=== PATIENT | female | born 1950 | race African-American/Black ===

== ENCOUNTER → 2016-08-01 | Outpatient (CLI) | payer OTHER ==
--- NOTE | 2016-08-01 12:14 | RAD ---
DATE: 08/01/2016 EXAM: DIGITAL SCREEN BILAT W/CAD HISTORY: Routine screening COMPARISON: 07/27/2015 and 07/21/2014. This study was interpreted with the benefit of Computerized Aided Detection (CAD). FINDINGS: The overall parenchymal pattern is stable. There are benign calcifications throughout both breasts. There appears to be some increase in microcalcifications in the medial aspect of the right breast at posterior depth. Magnification views are recommended. Left breast appears to be fairly stable. No spiculated mass is identified. The axillae are unremarkable. Breast Density: HETERO The breast parenchyma is heterogeneously dense, which could reduce sensitivity of mammography. Breast parenchyma level C. IMPRESSION: Increase in number of right breast calcifications. Magnification and mediolateral views are recommended. BI-RADS CATEGORY: 0 INCOMPLETE: NEEDS ADDITIONAL IMAGING EVALUATION AND/OR PRIOR MAMMOGRAMS FOR COMPARISON. RECOMMENDED FOLLOW-UP: ADD ADDITIONAL IMAGING PQRS compliance statement: Patient information was entered into a reminder system with a target due date for the next mammogram. Mammography is a sensitive method for finding small breast cancers, but it does not detect them all and is not a substitute for careful clinical examination. A negative mammogram does not negate a clinically suspicious finding and should not result in delay in biopsying a clinically suspicious abnormality. "Our facility is accredited by the [employer] Mammography Program."
== END | disposition home or self-care (01) ==
LOC: MAMMO 08:39
PROVIDERS: ATTEND Internal Medicine
DX: Z12.31 Encounter for screening mammogram for malignant neoplasm of breast (principal)
CPT/HCPCS: G0202; 77067

== ENCOUNTER → 2016-08-07 | Outpatient (CLI) | payer OTHER ==
--- NOTE | 2016-08-07 11:02 | RAD ---
DATE: 08/07/2016 EXAM: DIGITAL DIAGNOSTIC RT HISTORY: Suspicious screening study COMPARISON: 08/01/2016, 07/27/2015 This study was interpreted with the benefit of Computerized Aided Detection (CAD). FINDINGS: Additional views of the right breast confirm the presence of a cluster of microcalcifications in the posterior aspect of the right breast at the 2:00 location. The magnification views demonstrate microcalcifications of varying sizes and shapes. These have progressed since the previous studies. The overall grouping demonstrates a somewhat elongated configuration. These calcifications are spread over an area measuring approximately 1 x 2 cm. DCIS is a possibility and stereotactic biopsy is suggested. IMPRESSION: Suspicious right breast microcalcifications as described above. Stereotactic biopsy is suggested for further evaluate location. BI-RADS CATEGORY: 4 SUSPICIOUS ABNORMALITY- BIOPSY SHOULD BE CONSIDERED RECOMMENDED FOLLOW-UP: BIO BIOPSY RECOMMENDED Note: The findings were discussed with the patient at the time of the exam and she is aware of our recommendation for biopsy. She will follow up with the ordering physician. PQRS compliance statement: Patient information was entered into a reminder system with a target due date for the next mammogram. Mammography is a sensitive method for finding small breast cancers, but it does not detect them all and is not a substitute for careful clinical examination. A negative mammogram does not negate a clinically suspicious finding and should not result in delay in biopsying a clinically suspicious abnormality. "Our facility is accredited by the [employer] Mammography [employer]."
== END | disposition home or self-care (01) ==
LOC: MAMMO 10:22
PROVIDERS: ATTEND Internal Medicine
DX: R92.8 Other abnormal and inconclusive findings on diagnostic imaging of breast (principal)
CPT/HCPCS: G0206; 77065

== ENCOUNTER → 2016-08-14 | Outpatient (CLI) | payer OTHER ==
[~2016-08-14] VITALS: Ht 149.9 cm; Wt 83.9 kg
[~2016-08-14] MED LIST: ASPI-482 PO; CALC-584 PO; CETI10TA22 PO; HYDR12.58 PO; LIDOCAINE 1% / SOD BICARB 8.4% 20 ML VIAL. IJ ONE; LIDOCAINE 2%/EPI 1:100,000 20 ML VIAL. IJ ONE
[2016-08-14 11:16] VITALS: BP 156/72
== END | disposition home or self-care (01) ==
LOC: MAMMO 10:27
PROVIDERS: ATTEND Internal Medicine
DX: R92.8 Other abnormal and inconclusive findings on diagnostic imaging of breast (principal)
CPT/HCPCS: 19085; 77022; C1713; G0206; J3490; 77065

== ENCOUNTER → 2017-03-12 | Outpatient (CLI) | payer OTHER ==
[2016-08-14 11:16] VITALS: BP 156/72
[~2017-03-12] MED LIST changes: -LIDOCAINE 1% / SOD BICARB 8.4% 20 ML VIAL. IJ ONE; -LIDOCAINE 2%/EPI 1:100,000 20 ML VIAL. IJ ONE
--- NOTE | 2017-03-12 10:33 | KCIC ---
Bone mineral density exam History: Postmenopausal Comparison: None Findings: Bone mineral density examination utilizing DEXA was performed. Left hip bone mineral density of 0.891 g/cm2 corresponds with a T score -0.4, Z score 0.2. Compared with previous exam, there has been -3.0% decrease. The bone mineral density of the lumbar spine was 1.150 g/cm2 which corresponds with a T-score of 0.9, Z score 2.2. Compared with the previous exam, there has been 3.7% increase. By [employer] on Osteoporosis criteria, a T score of 0 to-1 SD is considered to be within normal limits. A T score of -1 to -2.5 SD is considered osteopenia. A T score less than -2.5 SD is considered osteoporosis Impression: 1. Bone mineral density of the lumbar spine and the left hip are considered within normal limits. Bone mineral density of the lumbar spine may be somewhat artificially elevated due to the presence of degenerative change. Electronically signed by: Stuart Marie MD (03/12/2017 10:29 AM) [id number]
== END | disposition home or self-care (01) ==
LOC: KCIC DEXA 09:25
PROVIDERS: ATTEND Internal Medicine
DX: M85.88 Other specified disorders of bone density and structure, other site (principal); Z78.0 Asymptomatic menopausal state
CPT/HCPCS: 77080

== ENCOUNTER → 2017-05-27 | Outpatient (CLI) | payer OTHER | END | disposition home or self-care (01) | LOC: KCIC US 12:53 | DX: N17.9 Acute kidney failure, unspecified (principal); N28.1 Cyst of kidney, acquired | CPT/HCPCS: 76770 ==

== ENCOUNTER → 2017-07-24 | Outpatient (CLI) | payer OTHER | END | disposition home or self-care (01) | LOC: KCIC US 10:35 | DX: E04.2 Nontoxic multinodular goiter (principal); R94.6 Abnormal results of thyroid function studies | CPT/HCPCS: 76536 ==

== ENCOUNTER → 2017-12-04 | Outpatient (CLI) | payer OTHER ==
[2016-08-14 11:16] VITALS: BP 156/72
--- NOTE | 2017-12-04 10:11 | KCIC ---
EXAM: Chest, 2 views. HISTORY: Cough. COMPARISON: None. FINDINGS: Frontal and lateral views of the chest are obtained. There is suspected bilateral lower lobe atelectasis. There is focal opacity overlying the left upper lobe likely due to a prominent first rib end. The heart is normal in size. There is no pleural effusion or pneumothorax. IMPRESSION: Suspected bilateral lower lobe atelectasis. Electronically signed by: Arleth Thakkar MD (12/04/2017 10:07 AM) [place] [id number]
== END | disposition home or self-care (01) ==
LOC: KCIC 09:30
PROVIDERS: ATTEND Internal Medicine
DX: R05 Cough (principal)
CPT/HCPCS: 71046

== ENCOUNTER → 2017-12-19 | Outpatient (CLI) | payer OTHER ==
[2016-08-14 11:16] VITALS: BP 156/72
--- NOTE | 2017-12-22 08:46 | RAD ---
DATE: 12/19/2017 EXAM: MAMMO ROLANDO SCREENING BILATERAL HISTORY: Benign right breast biopsy in 2017. COMPARISON: 08/01/2016 and 07/27/2015 screening mammographic exams This study was interpreted with the benefit of Computerized Aided Detection (CAD ). Breast Density: HETERO The breast parenchyma is heterogenously dense, which could reduce sensitivity of mammography. Breast parenchyma level C. FINDINGS: Parenchymal distribution is stable. Benign calcifications are present. Biopsy clip marker involves the right inner breast. No new masses or distortion. No dominant masses. IMPRESSION: BI-RADS CATEGORY: 2 BENIGN FINDING(S) RECOMMENDED FOLLOW-UP: PQRS compliance statement: Patient information was entered into a reminder system with a target due date in 1 year for the next mammogram. Mammography is a sensitive method for finding small breast cancers, but it does not detect them all and is not a substitute for careful clinical examination. A negative mammogram does not negate a clinically suspicious finding and should not result in delay in biopsying a clinically suspicious abnormality. "Our facility is accredited by the [employer] Mammography Program." ARASHD
== END | disposition home or self-care (01) ==
LOC: MAMMO 12:34
PROVIDERS: ATTEND Internal Medicine
DX: Z12.31 Encounter for screening mammogram for malignant neoplasm of breast (principal)
CPT/HCPCS: 77063; 77067

== ENCOUNTER → 2019-02-15 | Day surgery (SDC) | payer OTHER ==
[~2019-02-15] MED LIST changes: +CALC-31 PO; +HYDROmorphone 2 MG/ML VIAL IV PRN; +IV RINGERS,LACTATED 1000ML 1,000 ML IV ONE; +IV RINGERS,LACTATED 1000ML 1,000 ML IV SCH; +LIDOCAINE 1% PF 2 ML VIAL. ID PRN; +MONT10TA49 PO; +MORPHINE SULFATE 2 MG/ML VIAL. IV PRN; +ONDANSETRON PF 4 MG/2 ML VIAL. IV PRN; +POTASSIUM CHLO10 ME1 PO; +PROCHLORPERAZINE 10 MG/2 ML VIAL. IV PRN; +PROPOFOL 40 ML IV ONE; +VENTOLIN HFA18 GM INH; +fentaNYL PF VIAL 100 MCG/2 ML VIAL IV PRN
--- NOTE | 2019-02-15 14:19 | PDOC4 ---
PROCEDURE Procedure Colonoscopy Indication: Screening, average risk. Last 2008. Meds: per anesthesia Findings: NESTOR: normal. --'Scope advanced to cecum. Prep OK. Mucosa normal. No diverticula, polyps, etc. Normal retroflex. Analy. well. IMP: Negative screening colonoscopy. REC: Consider repeat colonoscopy in 10 years if health remains good. F/u with me prn. Resume home meds, diet. CELIA SMITH MD Feb 15, 2019 14:18
[2019-02-15 14:37] VITALS: BP 139/62
== END ==
LOC: ENDOS 12:28
PROVIDERS: ATTEND Internal Medicine Gastroenterology
DX: Z12.11 Encounter for screening for malignant neoplasm of colon (principal); K63.89 Other specified diseases of intestine; I10 Essential (primary) hypertension; Z87.39 Personal history of other diseases of the musculoskeletal system and connective tissue
CPT/HCPCS: 45378; J2704

== ENCOUNTER → 2019-03-29 | Outpatient (CLI) | payer MEDICARE, OTHER ==
[2019-02-15 14:37] VITALS: BP 139/62
[~2019-03-29] MED LIST changes: -CETI10TA22 PO; +CETI10TA24 PO; -HYDROmorphone 2 MG/ML VIAL IV PRN; -IV RINGERS,LACTATED 1000ML 1,000 ML IV ONE; -IV RINGERS,LACTATED 1000ML 1,000 ML IV SCH; -LIDOCAINE 1% PF 2 ML VIAL. ID PRN; -MORPHINE SULFATE 2 MG/ML VIAL. IV PRN; -ONDANSETRON PF 4 MG/2 ML VIAL. IV PRN; -PROCHLORPERAZINE 10 MG/2 ML VIAL. IV PRN; -PROPOFOL 40 ML IV ONE; -fentaNYL PF VIAL 100 MCG/2 ML VIAL IV PRN
--- NOTE | 2019-03-29 17:01 | KCIC ---
Examination: THYROID ULTRASOUND History: Multinodular goiter Comparison/Correlation: 07/24/2017 thyroid ultrasound exam Findings: Thyroid ultrasound examination was performed. Multiple small right thyroid nodules are present. These measure less than 0.5 cm diameter. These are present at the upper pole and interpolar region primarily. At least one of these has a small calcification associated with it. Left thyroid superior pole 1 cm diameter cyst is present. The left thyroid lobe inferior pole, there is a heterogeneous mixed cystic-solid 2.9 cm x 2.4 cm 1.8 cm tall mass. Flow is evident within it. Thyroid isthmus measures 0.3 cm anteroposterior. Right thyroid lobe measures 5.3 cm x 1.8 cm x 1.9 cm. Left thyroid lobe measures 5.2 cm x 2.2 cm x 2.6 cm. Impression: TI-RADS category 2. No significant change in the dominant left lower thyroid lobe nodule. No suspicious change in other nodules. Follow-up in one year to assess continued stability. Electronically signed by: Justin Baeza MD (03/29/2019 4:58 PM) [facility]
== END | disposition home or self-care (01) ==
LOC: KCIC US 10:58
PROVIDERS: ATTEND Internal Medicine Endocrinology, Diabetes & Metabolism
DX: E05.20 Thyrotoxicosis with toxic multinodular goiter without thyrotoxic crisis or storm (principal)
CPT/HCPCS: 76536

== ENCOUNTER → 2019-10-04 | Outpatient (CLI) | payer BC ==
[2019-02-15 14:37] VITALS: BP 139/62
--- NOTE | 2019-10-05 17:38 | RAD ---
BILATERAL SCREENING MAMMOGRAM, 3-D History: Routine screening. Comparison: 07/26/2014, 07/27/2015, 08/01/2016, 08/10/2017. Technique: MLO and CC digital tomosynthesis (3D) images obtained. Radiologist reviewed these images on dedicated workstation. Findings: Breast Tissue Density C : The breasts are heterogeneously dense, which may obscure small masses. There are no dominant masses, suspicious microcalcifications, or architectural distortion. IMPRESSION: No mammographic evidence of malignancy. Recommend routine screening. BI-RADS category 1: Negative. The images were reviewed with computer-aided detection. Patient information is entered into reminder system with a target due date for the next screening mammogram. Mammography is the most sensitive method for finding small breast cancers, but it does not detect them all and is not a substitute for careful clinical examination. A negative mammogram does not negate a clinically suspicious finding and should not result in delay in biopsying a clinically suspicious abnormality. "Our facility is accredited by the [employer] Mammography Program." Electronically signed by: Justin Baeza MD (10/05/2019 5:35 PM) [id number]
== END | disposition home or self-care (01) ==
LOC: MAMMO 15:11
PROVIDERS: ATTEND Internal Medicine
DX: Z12.31 Encounter for screening mammogram for malignant neoplasm of breast (principal)
CPT/HCPCS: 77063; 77067

== ENCOUNTER → 2020-10-04 | Outpatient (CLI) | payer MEDICARE ==
[2019-02-15 14:37] VITALS: BP 139/62
[~2020-10-04] MED LIST changes: -CETI10TA24 PO; +CETI10TA74 PO
--- NOTE | 2020-10-04 12:26 | RAD ---
EXAM: Thyroid sonogram. HISTORY: Multinodular goiter. TECHNIQUE: Sonographic imaging of the thyroid was performed. COMPARISON: 03/29/2019 and 07/24/2017. FINDINGS: The right thyroid lobe measures 4.9 x 2.0 x 2.0 cm. The left thyroid lobe measures 5.0 x 2. 4 x 2.2 cm. The thyroid isthmus measures 2.9 mm in thickness. There are multiple small mixed cystic and solid nodules and colloid cysts within the right thyroid lo be. The largest mixed cystic and solid nodule is seen within the lower mid zone measuring 5 x 5 x 4 m m. There is a similar-appearing mixed solid and cystic nodule within the superior right thyroid lobe measuring 5 x 4 x 3 mm. There are is a dominant peripherally solid nodule with cystic components and echogenic foci within th e inferior left thyroid lobe measuring 3.0 x 2.3 x 1.9 cm. This is heterogeneous and primarily isoech oic with internal blood flow and slightly indistinct margins. There are additional small mixed cystic and solid nodules and colloid cyst within the left thyroid lobe. The largest mixed cystic and solid nodule is seen within the upper pole measuring 9 x 7 x 5 mm. IMPRESSION: 1. 3.0 cm dominant predominant a solid nodule with cystic components and echogenic foci within the in ferior left thyroid lobe. This is not significantly changed in size compared to the prior study, allo wing for differences in measurement technique. TI-RADS Category 4. Fine-needle aspiration of category 4 nodules of this size is typically recommended. However, given the greater than [address] ability of this nodule, continued sonographic follow-up is recommended is fine-needle aspiration is n ot performed. 2. Multiple small benign-appearing mixed cystic and solid nodules and colloid cyst within both thyroi d lobes, similar compared to the prior studies when allowing for differences in in measurement techni que. Electronically signed by: Arleth Thakkar MD (10/04/2020 12:24 PM) [id number]
== END ==
LOC: US 11:16
PROVIDERS: ATTEND Internal Medicine Endocrinology, Diabetes & Metabolism
DX: E04.2 Nontoxic multinodular goiter (principal); E05.20 Thyrotoxicosis with toxic multinodular goiter without thyrotoxic crisis or storm
CPT/HCPCS: 76536

== ENCOUNTER → 2020-10-09 | Outpatient (CLI) | payer MEDICARE ==
[2019-02-15 14:37] VITALS: BP 139/62
--- NOTE | 2020-10-11 12:16 | RAD ---
DATE: 10/09/2020 EXAM: MAMMO ROLANDO SCREENING BILATERAL HISTORY: Screening COMPARISON: 10/04/2019, 12/19/2017, 08/14/2016, 08/07/2016, 08/01/2016, 07/27/2015 This study was interpreted with the benefit of Computerized Aided Detection (CAD). Breast Density: HETERO The breast parenchyma is heterogenously dense, which could reduce sensitivity of mammography. Breast parenchyma level C. FINDINGS: There is a biopsy clip in the inner right breast. Bilateral benign calcifications are unchanged since. No suspicious mass, suspicious calcifications, or architectural distortion. IMPRESSION: No evidence of malignancy. BI-RADS CATEGORY: 2 BENIGN FINDING(S) RECOMMENDED FOLLOW-UP: 12M 12 MONTH FOLLOW-UP PQRS compliance statement: Patient information was entered into a reminder system with a target due date for the next mammogram. Mammography is a sensitive method for finding small breast cancers, but it does not detect them all and is not a substitute for careful clinical examination. A negative mammogram does not negate a clinically suspicious finding and should not result in delay in biopsying a clinically suspicious abnormality. "Our facility is accredited by the [employer] Mammography Program."
== END ==
LOC: MAMMO 13:26
PROVIDERS: ATTEND Internal Medicine
DX: Z12.31 Encounter for screening mammogram for malignant neoplasm of breast (principal); R92.1 Mammographic calcification found on diagnostic imaging of breast
CPT/HCPCS: 77063; 77067

== ENCOUNTER → 2021-03-30 | Outpatient (CLI) | payer MEDICARE ==
[2019-02-15 14:37] VITALS: BP 139/62
--- NOTE | 2021-04-01 17:50 | RAD ---
Thyroid ultrasound 03/30/2021 CLINICAL HISTORY: Multinodular goiter. TECHNIQUE: A real-time ultrasound examination of the thyroid gland was performed. Multiple images wer e obtained. FINDINGS: Comparison study is dated 10/04/2020. The thyroid gland is enlarged. The right lobe of thyroid gland measures 4.4 x 1.9 x 1.9 cm in longitu dinal, transverse, and AP dimensions. The left lobe of thyroid gland measures 5.2 x 2.3 x 3.1 cm in s ize. The isthmus measures 3 mm in thickness. Multiple complex nodules are seen scattered throughout b oth lobes of the thyroid gland. These measure 5 mm to 3.3 cm in size. The largest nodule is located w ithin the left lobe of thyroid gland. These nodules have not significant changed since the previous e xamination. No new nodule is seen. IMPRESSION: Findings are again seen consistent with a multinodular goiter, unchanged. Electronically signed by: Ming Hein MD (04/01/2021 5:48 PM) [id number]
== END ==
LOC: US 14:09
PROVIDERS: ATTEND Internal Medicine Endocrinology, Diabetes & Metabolism
DX: E04.9 Nontoxic goiter, unspecified (principal); E05.20 Thyrotoxicosis with toxic multinodular goiter without thyrotoxic crisis or storm
CPT/HCPCS: 76536